=== PATIENT | female | born 1950 | race Caucasian/White ===

== ENCOUNTER → 2016-06-06 | Outpatient (CLI) | payer MEDICARE, OTHER ==
[2016-06-06 14:39] LABS: CHLORIDE,CL 102 mmol/L (98-110); SODIUM,NA 140 mmol/L (136-146)
== END ==
LOC: MW.CHFP 13:51
PROVIDERS: ATTEND Physician Assistant
DX: R10.13 Epigastric pain (principal)
CPT/HCPCS: 36415; 80053; 85025; 99214

== ENCOUNTER → 2016-06-10 | Outpatient (CLI) | payer MEDICARE, OTHER ==
--- NOTE | 2016-06-10 13:20 | US ---
EXAMINATION: Right upper quadrant ultrasound HISTORY: Epigastric pain COMPARISON: 03/30/2015 TECHNIQUE: Grayscale and color Doppler images obtained of the right upper quadrant. FINDINGS: The visualized pancreas appears normal. The liver is mildly increased in generalized echot exture without a focal hepatic mass. The gallbladder wall thickness is normal. No pericholecystic fl uid or shadowing gallstones. The common bile duct measures 3 mm. The right kidney measures 11.1 cm p ole-to-pole without evidence of hydronephrosis. The Sonographic Marte sign is negative. IMPRESSION: 1. Mild fatty infiltration of the liver, otherwise unremarkable right upper quadrant ultrasound.
== END ==
LOC: MW.US 08:46
PROVIDERS: ATTEND Physician Assistant
DX: R10.13 Epigastric pain (principal); K76.0 Fatty (change of) liver, not elsewhere classified
CPT/HCPCS: 76705; 76705-26

== ENCOUNTER → 2016-06-16 | Outpatient (CLI) | payer MEDICARE, OTHER ==
--- NOTE | 2016-06-17 18:43 | PCM.PRNOTE ---
- Free Text/Narrative Note: Exercise MIBI Indication CP Sestamibi Tc99 25 MCi was given at the peak HR Patient was brought to the stress test lab in postabsorptive state verbal and paper consent was obtained from patient Vital signs at resting state blood pressure of 124/82 with a heart rate of 89 EKG shows sinus rhythm, with PVCs no ST changes no Q waves Maximal heart rate of 158 and target heart rate is 132 Patient reached the target heart rate, completed stage II Sonny protocol Peak blood pressure is 142/84 Total exercise time of 3.[address] changes with a peak heart rate no arrhythmia METS 4.6 No symptom of chest pain or feeling dizzy Impression Normal hemodynamics, normal chronotropic, poor exercise capacity, negative for ischemia on EKG Plan Nuclear portion pending
--- NOTE | 2016-06-21 11:03 | NM ---
EXAMINATION: Nuclear medicine myocardial perfusion study with exercise stress test. HISTORY: Chest pain. PROCEDURE: Patient exercised according to Sonny protocol for 3 minutes and 23 seconds and achieved maximal hear t rate of 158 beats per minute. Adequate exercise. Following intravenous administration of 26.7, and 25.7 mCi of technetium 99m sestamibi, stress and r est SPECT images including gating imaging was performed. FINDINGS: Stress and rest myocardial SPECT images demonstrates mildly decreased perfusion along the inferior w all, most notable on the stress images. Mild breast attenuation artifact is noted along the mid to a pical anterior wall. Review of gated images demonstrates normal wall motion, contractility and wall thickening. The left ventricular ejection fraction is 56 %. The left ventricular chamber size is normal. TID is 1.0. IMPRESSION: 1. Mildly decreased perfusion along the inferior wall most notable on the stress imaging, mild under lying ischemia is not excluded. 2. Normal ventricular chamber size and function with ejection fraction of 56 %.
== END ==
LOC: MW.NM 08:21
PROVIDERS: ATTEND Internal Medicine
DX: R07.9 Chest pain, unspecified (principal)
CPT/HCPCS: 78451; 93017; A9500

== ENCOUNTER → 2016-06-21 | Outpatient (CLI) | payer MEDICARE, OTHER | LOC: MW.NM 08:04 | PROVIDERS: ATTEND Internal Medicine | DX: R07.9 Chest pain, unspecified (principal) | CPT/HCPCS: 78451; A9500; 93017 ==

== ENCOUNTER → 2016-06-24 | Outpatient (CLI) | payer MEDICARE, OTHER | LOC: MW.CHGS 08:00 | PROVIDERS: ATTEND Surgery | DX: R10.13 Epigastric pain (principal) | CPT/HCPCS: 99203 ==

== ENCOUNTER → 2016-06-29 | Outpatient (CLI) | payer MEDICARE, OTHER | LOC: MW.CHIM 08:00 | PROVIDERS: ATTEND Internal Medicine | DX: R07.9 Chest pain, unspecified (principal); I10 Essential (primary) hypertension; E11.9 Type 2 diabetes mellitus without complications | CPT/HCPCS: 99215 ==

== ENCOUNTER → 2016-07-29 | Outpatient (CLI) | payer MEDICARE, OTHER | LOC: MW.CHIM 11:00 | PROVIDERS: ATTEND Otolaryngology | DX: R07.9 Chest pain, unspecified (principal) | CPT/HCPCS: G0463 ==

== ENCOUNTER → 2016-08-15 | Outpatient (CLI) | payer MEDICARE, OTHER | LOC: MW.CHIM 08:00 | PROVIDERS: ATTEND Internal Medicine | DX: I25.10 Atherosclerotic heart disease of native coronary artery without angina pectoris (principal); E78.00 Pure hypercholesterolemia, unspecified; E11.9 Type 2 diabetes mellitus without complications; I10 Essential (primary) hypertension | CPT/HCPCS: 99214 ==

== ENCOUNTER 2017-05-09 08:38 | Emergency (ER) | payer MEDICARE, OTHER ==
[2017-05-09] MEDS ORDERED: Sodium Chloride 0.9% 1,000 ML IV ONE (08:58)
[2017-05-09] MEDS ORDERED: Ondansetron 4 MG/2 ML SDV IVPUSH ONE (08:58)
--- NOTE | 2017-05-09 08:59 | EDM.PDOC ---
ED HPI GENERAL MEDICAL PROBLEM - General Chief Complaint: Gastrointestinal Problem Stated Complaint: BP LOW Time Seen by Provider: 05/09/17 08:59 Source of Information: Reports: Patient - History of Present Illness INITIAL COMMENTS - FREE TEXT/NARRATIVE: HISTORY AND PHYSICAL: History of present illness: [Patient presents with history of anemia on iron supplementation hemoglobin levels are on file Her she has no fever nausea vomiting chills sweats no chest pain shortness breath headache dizziness or palpitation no bowel or urine symptoms It seems Mónica her iron dose was tripled since she has been having some stomach upset and constipation issues, she is guaiac positive however hemoglobin level is actually higher than previous last month and hemodynamically stable She has been on the constipated side since the increase in iron supplementation ] Review of systems: As per history of present illness and below otherwise all systems reviewed and negative. Past medical history: As per history of present illness and as reviewed below otherwise noncontributory. Surgical history: As per history of present illness and as reviewed below otherwise noncontributory. Social history: No reported history of drug or alcohol abuse. Family history: As per history of present illness and as reviewed below otherwise noncontributory. Physical exam: HEENT: Atraumatic, normocephalic, pupils reactive, negative for conjunctival pallor or scleral icterus, mucous membranes moist, throat clear, neck supple, nontender, trachea midline. Lungs: Clear to auscultation, breath sounds equal bilaterally, chest nontender. Heart: S1S2, regular, negative for clicks, rubs, or JVD. Abdomen: Soft, nondistended, nontender. Negative for masses or hepatosplenomegaly. Negative for costovertebral tenderness. Pelvis: Stable nontender. Genitourinary: Deferred. Rectal: No mass scar or lesion internal or external guaiac was 3+ positive Extremities: Atraumatic, negative for cords or calf pain. Neurovascular unremarkable. Neuro: Awake, alert, oriented. Cranial nerves II through XII unremarkable. Cerebellum unremarkable. Motor and sensory unremarkable throughout. Exam nonfocal. Diagnostics: [CBC CMP UA Abdomen flat and upright Guaiac +3+ ] Therapeutics: [Normal saline bolus Zofran 8 mg IV Proton X 80 mg IV Follow-up with repeat CBC i within 2 weeks with your primary care] patient offered admission due to her diversion status she would have to be admitted at [facility] she declines wishing to follow up with her primary care Impression: [Guaiac positive Anemia stable Iron supplementation Chronic history at baseline] Definitive disposition and diagnosis as appropriate pending reevaluation and review of above. Abdominal Pain Score (Numeric/FACES): 5 - Related Data Allergies Allergy/AdvReac Type Severity Reaction Status Date / Time caffeine Allergy Diarrhea Verified 05/09/17 09:01 codeine Allergy Nausea Verified 05/09/17 09:01 IVP dye Allergy Anaphylactic Uncoded 05/09/17 09:01 Shock Home Meds: Home Meds Albuterol Sulfate [Proair Hfa] 2 puff INH QID PRN 08/17/15 [History] Ascorbic Acid [C-1000 with Richa Hips] 500 mg PO DAILY 08/17/15 [History] Calcium Carbonate/Vitamin D3 [Calcium 600 + Vit D 200] 1 tab PO DAILY 08/17/15 [ History] Chlorthalidone 12.5 mg PO DAILY 08/17/15 [History] Cholecalciferol (Vitamin D3) [Vitamin D3] 1 tab PO DAILY 08/17/15 [History] Citalopram Hydrobromide [Celexa] 20 mg PO DAILY 08/17/15 [History] Diclofenac Sodium [Voltaren] 75 mg PO BID 08/17/15 [History] Estradiol [Vagifem] 1 tab VAG ASDIRECTED 08/17/15 [History] Fluticasone Propionate [Flonase Allergy Relief] 1 spray NASBOTH ASDIRECTED 08/16 [History] Gabapentin [Neurontin] 1 tab PO TID 08/17/15 [History] Hydrocortisone [Hydrocortisone 2.5% Crm] 1 applic TOP ASDIRECTED 08/17/15 [ History] Iron 1 tab PO DAILY 08/17/15 [History] Losartan Potassium 100 mg PO BEDTIME 08/17/15 [History] Magnesium 1 tab PO DAILY 08/17/15 [History] Om-3/Epa/Dha/Fish Oil/Flax/E [Thera Tears Nutrition] 1 tab PO DAILY 08/17/15 [ History] Omeprazole 1 cap PO DAILY 08/17/15 [History] Past Medical History HEENT History: Reports: Allergic Rhinitis, Hard of Hearing, Impaired Vision Other HEENT History: wears glasses Cardiovascular History: Reports: None Respiratory History: Reports: Asthma Gastrointestinal History: Reports: GERD, Hiatal Hernia Genitourinary History: Reports: None SCANNING TECH History: Reports: None Musculoskeletal History: Reports: Arthritis, Back Pain, Chronic, Fibromyalgia, Other (See Below) Other Musculoskeletal History: has spinal stenosis Neurological History: Reports: None Psychiatric History: Reports: Anxiety, Depression Endocrine/Metabolic History: Reports: Diabetes, Type II, Obesity/BMI 30+ Other Endocrine/Metabolic History: recently diagnosed diabetic, has not started on medication Hematologic History: Reports: Blood Transfusion(s) Immunologic History: Reports: None Oncologic (Cancer) History: Reports: None Dermatologic History: Reports: Other (See Below) Other Dermatologic History: has dermatitis on face - Past Surgical History Musculoskeletal Surgical History: Reports: Hip Replacement, Knee Replacement, Other (See Below) Social & Family History - Tobacco Use Smoking Status *Q: Never Smoker - Recreational Drug Use Recreational Drug Use: No ED ROS GENERAL - Review of Systems Review Of Systems: ROS reveals no pertinent complaints other than HPI. ED EXAM, GENERAL - Physical Exam Exam: See Below Course - Vital Signs Last Recorded V/S: Last Vital Signs Temp 97.1 F 05/09/17 11:55 Pulse 61 05/09/17 11:55 Resp 15 05/09/17 11:55 BP 128/59 L 05/09/17 11:55 Pulse Ox 98 05/09/17 11:55 - Orders/Labs/Meds Orders: Active Orders 24 hr Category Date Time Status Guaiac [OCCULT BLOOD DIAGNOSTIC] [OP] Stat Lab 05/09/17 13:08 Uncollected INR,PT,PROTHROMBIN TIME [COAG] Stat Lab 05/09/17 09:10 Received Labs: Laboratory Tests 05/09/17 05/09/17 05/09/17 Range/Units 09:10 09:10 09:55 WBC 8.18 (4.0-11.0) K/uL RBC 4.10 L (4.30-5.90) M/uL Hgb 9.2 L (12.0-16.0) g/dL Hct 31.4 L (36.0-46.0) % MCV 76.6 L (80.0-98.0) fL MCH 22.4 L (27.0-32.0) pg MCHC 29.3 L (31.0-37.0) g/dL RDW Std Deviation 49.3 (28.0-62.0) fl RDW Coeff of Chavez 18 H (11.0-15.0) % Plt Count 320 (150-400) K/uL MPV 9.10 (7.40-12.00) fL Neut % (Auto) 77.0 (48.0-80.0) % Lymph % (Auto) 12.1 L (16.0-40.0) % [place] % (Auto) 6.8 (0.0-15.0) % Eos % (Auto) 3.7 (0.0-7.0) % Baso % (Auto) 0.4 (0.0-1.5) % Neut # (Auto) 6.3 H (1.4-5.7) K/uL Lymph # (Auto) 1.0 (0.6-2.4) K/uL [place] # (Auto) 0.6 (0.0-0.8) K/uL Eos # (Auto) 0.3 (0.0-0.7) K/uL Baso # (Auto) 0.0 (0.0-0.1) K/uL Nucleated RBC % 0.0 /100WBC Nucleated RBCs # 0 K/uL Sodium 137 (136-146) mmol/L Potassium 4.0 (3.5-5.1) mmol/L Chloride 102 (98-110) mmol/L Carbon Dioxide 26 (21-31) mmol/L BUN 29 H (6.0-23.0) mg/dL Creatinine 0.9 (0.6-1.5) mg/dL Est Cr Clr Drug Dosing 60.60 mL/min Estimated GFR (MDRD) > 60.0 ml/min Glucose 183 H (60-110) mg/dL Calcium 9.1 (8.8-10.8) mg/dL Total Bilirubin 0.5 (0.1-1.5) mg/dL AST 22 (5-40) IU/L ALT 18 (8-54) IU/L Alkaline Phosphatase 78 (40-150) Total Protein 6.7 (6.0-8.0) g/dL Albumin 4.2 (3.4-4.8) g/dL Globulin 2.5 (2.0-3.5) g/dL Albumin/Globulin Ratio 1.7 (1.3-2.8) Urine Color YELLOW Urine Appearance CLEAR Urine pH 6.5 (5.0-8.0) Ur Specific [place] 1.015 (1.001-1.035) Urine Protein NEGATIVE (NEGATIVE) mg/dL Urine Glucose (UA) NEGATIVE (NEGATIVE) mg/dL Urine Ketones NEGATIVE (NEGATIVE) mg/dL Urine Occult Blood TRACE-INTACT (NEGATIVE) Urine Nitrite NEGATIVE (NEGATIVE) Urine Bilirubin NEGATIVE (NEGATIVE) Urine Urobilinogen 0.2 (<2.0) EU/dL Ur Leukocyte Esterase TRACE (NEGATIVE) Urine RBC 0-2 (0-2/HPF) Urine WBC 0-1 (0-5/HPF) Ur Epithelial Cells OCCASIONAL (NONE-FEW) Urine Bacteria RARE (NEGATIVE) Meds: Medications Discontinued Medications Generic Name Dose Route Start Last Admin Trade Name Isabelle PRN Reason Stop Dose Admin Sodium Chloride 1,000 mls @ 999 mls/hr 05/09/17 08:58 05/09/17 09:16 Normal Saline IV 05/09/17 09:58 999 mls/hr STAT ONE Administration Ondansetron HCl 8 mg 05/09/17 08:58 05/09/17 09:17 Zofran IVPUSH 05/09/17 08:59 8 mg ONETIME ONE Administration Pantoprazole Sodium 80 mg 05/09/17 11:54 Protonix Iv IVPUSH 05/09/17 11:55 .BOLUS ONE Departure - Departure Time of Disposition: 13:20 Disposition: Home, Self-Care 01 Condition: Fair Clinical Impression: Anemia, Constipation - Discharge Information Referrals: PCP,Unknown [Primary Care Provider] - Forms: ED Department Discharge Additional Instructions: Return if symptoms persist or worsen Continue current medications Clear liquid diet 12 hours MiraLAX may benefit bowel care as discussed Return if fever nausea vomiting chills sweats chest pain shortness breath headache dizziness or palpitation should these develop Follow-up with primary care within 2 weeks to recheck her hemoglobin levels The following information is given to patients seen in the emergency department who are being discharged to home. This information is to outline your options for follow-up care. We provide all patients seen in our emergency department with a follow-up referral. The need for follow-up, as well as the timing and circumstances, are variable depending upon the specifics of your emergency department visit. If you don't have a primary care physician on staff, we will provide you with a referral. We always advise you to contact your personal physician following an emergency department visit to inform them of the circumstance of the visit and for follow-up with them and/or the need for any referrals to a consulting specialist. The emergency department will also refer you to a specialist when appropriate. This referral assures that you have the opportunity for follow-up care with a specialist. All of these measure are taken in an effort to provide you with optimal care, which includes your follow-up. Under all circumstances we always encourage you to contact your private physician who remains a resource for coordinating your care. When calling for follow-up care, please make the office aware that this follow-up is from your recent emergency room visit. If for any reason you are refused follow-up, please contact the [facility] emergency department at and asked to speak to the emergency department charge nurse. - My Orders Last 24 Hours: My Active Orders 05/09/17 09:10 INR,PT,PROTHROMBIN TIME [COAG] Stat 05/09/17 13:08 Guaiac [OCCULT BLOOD DIAGNOSTIC] [OP] Stat - Assessment/Plan Last 24 Hours: My Active Orders 05/09/17 09:10 INR,PT,PROTHROMBIN TIME [COAG] Stat 05/09/17 13:08 Guaiac [OCCULT BLOOD DIAGNOSTIC] [OP] Stat
[2017-05-09 09:38] LABS: CHLORIDE,CL 102 mmol/L (98-110); SODIUM,NA 137 mmol/L (136-146)
[2017-05-09] MEDS ORDERED: Pantoprazole 40 MG Vial IVPUSH ONE (11:54)
--- NOTE | 2017-05-09 12:51 | CR ---
Flat plate and upright images of the abdomen Clinical history abdominal pain Comparison: no recent similar. Findings: There is no dilated bowel. A moderate amount of stool throughout the colon to the rectum wi th no air-fluid levels. 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 Impression: No definite specific abnormalities. Question of constipation.
[2017-05-09] MEDS ORDERED: Pantoprazole 40 MG Tab.CR ONE (14:07)
[2017-05-09 14:19] VITALS: BP 141/53
[2017-05-10] MEDS ORDERED: Pantoprazole 40 MG Tab.CR PO SCH (14:01)
== END 2017-05-09 14:25 | disposition home or self-care (01) ==
LOC: MW.ED 08:38
DX: D64.9 Anemia, unspecified (principal); K59.00 Constipation, unspecified; R19.5 Other fecal abnormalities; E11.9 Type 2 diabetes mellitus without complications; J45.909 Unspecified asthma, uncomplicated; Z79.899 Other long term (current) drug therapy
CPT/HCPCS: 36415; 74019; 80053; 81001; 82272; 85025; 85610; 87804; 96361; 96374; 99284; A9270; J2405; J7040

== ENCOUNTER 2017-05-22 10:32 | Emergency (ER) | payer MEDICARE, OTHER ==
[2017-05-22 12:14] LABS: CHLORIDE,CL 103 mmol/L (98-110); SODIUM,NA 137 mmol/L (136-146)
--- NOTE | 2017-05-22 13:20 | EDM.PDOC ---
ED HPI GENERAL MEDICAL PROBLEM - General Chief Complaint: General Stated Complaint: ANEMIA Time Seen by Provider: 05/22/17 11:00 Source of Information: Reports: Patient History Limitations: Reports: No Limitations - History of Present Illness INITIAL COMMENTS - FREE TEXT/NARRATIVE: HISTORY AND PHYSICAL: History of present illness: [Comes to the emergency room complaining of fatigue headache and generalized malaise. She has been following regularly with her primary care provider for low iron and anemia. She had been prescribed oral iron supplements which she was unable to tolerate due to nausea. These medications have been stopped for the past week and her PCP is contemplating if iron infusions should be ordered. 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 She is unable to be scoped due to cardiac stent that was placed within the past couple of months and she is now taking Plavix. She has felt poorly for the past few weeks but over the past couple of days she feels that she's gotten worse with headache and fatigue. She would like an iron infusion to be given in ER. She's not had fever or chills. No body aches, cough , sore throat or earaches. No chest pain shortness of breath or difficulty breathing. She's not had any fainting but admits that she occasionally feels lightheaded. No falls. No swelling to her extremities no muscle aches or pains.] Review of systems: As per history of present illness and below otherwise all systems reviewed and negative. Past medical history: As per history of present illness and as reviewed below otherwise noncontributory. Surgical history: As per history of present illness and as reviewed below otherwise noncontributory. Social history: No reported history of drug or alcohol abuse. Family history: As per history of present illness and as reviewed below otherwise noncontributory. Physical exam: HEENT: Atraumatic, normocephalic. Oral mucous membranes are pink and moist. Throat is clear. Lungs: Clear to auscultation, breath sounds equal bilaterally. Heart: S1S2, regular rate and rhythm. Abdomen: Soft, nondistended, nontender. Pelvis: Stable nontender. Genitourinary: Deferred. Rectal: Deferred. Extremities: Atraumatic, no cyanosis or edema to feet or lower legs. Neurovascular unremarkable. Neuro: Awake, alert, oriented. Motor and sensory unremarkable throughout. Exam nonfocal. Diagnostics: [CBC, CMP, iron, transferrin, TIBC] Impression: [anemia] Plan: [Discussed with patient that her hemoglobin is only very slightly decreased from 9.2 10 days ago to 9.0 today, and that her iron has improved in the last 10 days. Discussed that iron is not infused through the emergency room and only through the outpatient infusion center. Contacted patient's PCP, SERENE Wolf, who orders outpatient infusion of iron. Outpatient infusion center is unable to perform the treatment today as patient's insurance is requiring a prior authorization. Saran recommends that she is discharged home with the infusion center to call patient later on today or tomorrow to get scheduled. Encouraged patient to stay well-hydrated and rest. Strict return precautions are reviewed with the patient. She is in agreement with today's plan. Definitive disposition and diagnosis as appropriate pending reevaluation and review of above. - Related Data Allergies Allergy/AdvReac Type Severity Reaction Status Date / Time caffeine Allergy Diarrhea Verified 05/22/17 10:59 codeine Allergy Nausea Verified 05/22/17 10:59 IVP dye Allergy Anaphylactic Uncoded 05/09/17 09:01 Shock Home Meds: Home Meds Citalopram [Citalopram HBr] 20 mg PO DAILY 05/22/17 [History] Clopidogrel [Plavix] 75 mg PO DAILY 05/22/17 [History] Gabapentin [Neurontin] 800 mg PO TID 05/22/17 [History] Metoprolol Succinate 12.5 mg PO BID 05/22/17 [History] Pantoprazole [ProTONIX Granules] 40 mg PO DAILY 05/22/17 [History] traMADol [Ultram] 50 mg PO DAILY 05/22/17 [History] Past Medical History HEENT History: Reports: Allergic Rhinitis, Hard of Hearing, Impaired Vision Other HEENT History: wears glasses Cardiovascular History: Reports: None Respiratory History: Reports: Asthma Gastrointestinal History: Reports: GERD, Hiatal Hernia Genitourinary History: Reports: None FLOOR CARE SPECIALIST History: Reports: None Musculoskeletal History: Reports: Arthritis, Back Pain, Chronic, Fibromyalgia, Other (See Below) Other Musculoskeletal History: has spinal stenosis Neurological History: Reports: None Psychiatric History: Reports: Anxiety, Depression Endocrine/Metabolic History: Reports: Diabetes, Type II, Obesity/BMI 30+ Other Endocrine/Metabolic History: recently diagnosed diabetic, has not started on medication Hematologic History: Reports: Anemia, Blood Transfusion(s) Immunologic History: Reports: None Oncologic (Cancer) History: Reports: None Dermatologic History: Reports: Other (See Below) Other Dermatologic History: has dermatitis on face - Infectious Disease History Infectious Disease History: Reports: Chicken Pox, Measles, Mumps - Past Surgical History Head Surgeries/Procedures: Reports: None HEENT Surgical History: Reports: None Cardiovascular Surgical History: Reports: None Respiratory Surgical History: Reports: None GI Surgical History: Reports: None Female Surgical History: Reports: None Musculoskeletal Surgical History: Reports: Hip Replacement, Knee Replacement, Other (See Below) Oncologic Surgical History: Reports: None Dermatological Surgical History: Reports: None Social & Family History - Family History Family Medical History: Noncontributory - Tobacco Use Smoking Status *Q: Never Smoker Second Hand Smoke Exposure: No - Caffeine Use Caffeine Use: Reports: None - Recreational Drug Use Recreational Drug Use: No ED ROS GENERAL - Review of Systems Review Of Systems: ROS reveals no pertinent complaints other than HPI. ED EXAM, GENERAL - Physical Exam Exam: See Below Course - Vital Signs Last Recorded V/S: Last Vital Signs Temp 98.3 F 05/22/17 13:38 Pulse 70 05/22/17 13:38 Resp 20 05/22/17 13:38 BP 136/64 05/22/17 13:38 Pulse Ox 99 05/22/17 13:38 - Orders/Labs/Meds Labs: Laboratory Tests 05/22/17 05/22/17 05/22/17 Range/Units 11:37 11:37 11:37 WBC 7.60 (4.0-11.0) K/uL RBC 4.03 L (4.30-5.90) M/uL Hgb 9.0 L (12.0-16.0) g/dL Hct 30.5 L (36.0-46.0) % MCV 75.7 L (80.0-98.0) fL MCH 22.3 L (27.0-32.0) pg MCHC 29.5 L (31.0-37.0) g/dL RDW Std Deviation 45.7 (28.0-62.0) fl RDW Coeff of Chavez 16 H (11.0-15.0) % Plt Count 285 (150-400) K/uL MPV 8.70 (7.40-12.00) fL Neut % (Auto) 74.8 (48.0-80.0) % Lymph % (Auto) 14.6 L (16.0-40.0) % [place] % (Auto) 8.7 (0.0-15.0) % Eos % (Auto) 1.6 (0.0-7.0) % Baso % (Auto) 0.3 (0.0-1.5) % Neut # (Auto) 5.7 (1.4-5.7) K/uL Lymph # (Auto) 1.1 (0.6-2.4) K/uL [place] # (Auto) 0.7 (0.0-0.8) K/uL Eos # (Auto) 0.1 (0.0-0.7) K/uL Baso # (Auto) 0.0 (0.0-0.1) K/uL Nucleated RBC % 0.0 /100WBC Nucleated RBCs # 0 K/uL Sodium 137 (136-146) mmol/L Potassium 3.9 (3.5-5.1) mmol/L Chloride 103 (98-110) mmol/L Carbon Dioxide 25 (21-31) mmol/L BUN 12 (6.0-23.0) mg/dL Creatinine 0.8 (0.6-1.5) mg/dL Est Cr Clr Drug Dosing 68.18 mL/min Estimated GFR (MDRD) > 60.0 ml/min Glucose 118 H (60-110) mg/dL Calcium 9.4 (8.8-10.8) mg/dL Iron 36 L (50-170) ug/dL TIBC 402 (273-456) ug/dL % Saturation 8.96 L (20-55) % Transferrin 281 (200-400) ug/dL Total Bilirubin 0.4 (0.1-1.5) mg/dL AST 18 (5-40) IU/L ALT 16 (8-54) IU/L Alkaline Phosphatase 87 (40-150) Total Protein 6.7 (6.0-8.0) g/dL Albumin 4.2 (3.4-4.8) g/dL Globulin 2.5 (2.0-3.5) g/dL Albumin/Globulin Ratio 1.7 (1.3-2.8) Departure - Departure Time of Disposition: 13:20 Disposition: Home, Self-Care 01 Condition: Good Clinical Impression: Anemia - Discharge Information Instructions: Iron Deficiency Anemia, Adult Referrals: PCP,Unknown [Primary Care Provider] - Forms: ED Department Discharge Additional Instructions: The following information is given to patients seen in the emergency department who are being discharged to home. This information is to outline your options for follow-up care. We provide all patients seen in our emergency department with a follow-up referral. The need for follow-up, as well as the timing and circumstances, are variable depending upon the specifics of your emergency department visit. If you don't have a primary care physician on staff, we will provide you with a referral. We always advise you to contact your personal physician following an emergency department visit to inform them of the circumstance of the visit and for follow-up with them and/or the need for any referrals to a consulting specialist. The emergency department will also refer you to a specialist when appropriate. This referral assures that you have the opportunity for follow-up care with a specialist. All of these measure are taken in an effort to provide you with optimal care, which includes your follow-up. Under all circumstances we always encourage you to contact your private physician who remains a resource for coordinating your care. When calling for follow-up care, please make the office aware that this follow-up is from your recent emergency room visit. If for any reason you are refused follow-up, please contact the [facility] emergency department at and asked to speak to the emergency department charge nurse. [facility] [address] [place] [id number] Outpatient infusion center will be notifying you as soon as your insurance approves for iron infusion. Rest, push fluids. Return to ER as needed as discussed.
[2017-05-22 13:38] VITALS: BP 136/64
== END 2017-05-22 13:38 | disposition home or self-care (01) ==
LOC: MW.ED 10:32
DX: D64.9 Anemia, unspecified (principal); K21.9 Gastro-esophageal reflux disease without esophagitis; F32.9 Major depressive disorder, single episode, unspecified; E11.9 Type 2 diabetes mellitus without complications; Z79.02 Long term (current) use of antithrombotics/antiplatelets; Z79.899 Other long term (current) drug therapy; Z88.5 Allergy status to narcotic agent; Z91.041 Radiographic dye allergy status; Z88.8 Allergy status to other drugs, medicaments and biological substances
CPT/HCPCS: 36415; 80053; 83550; 85025; 99283; 99284

== ENCOUNTER 2017-07-10 13:31 | Emergency (ER) | payer MEDICARE, OTHER ==
[2017-07-10] MEDS ORDERED: Ondansetron 4 MG/2 ML SDV IVPUSH ONE (14:48)
[2017-07-10] MEDS ORDERED: Sodium Chloride 0.9% 2.5 ML Syringe FLUSH PRN (14:51)
[2017-07-10] MEDS ORDERED: Sodium Chloride 0.9% 10 ML Syringe FLUSH PRN (14:51)
[2017-07-10] MEDS: HYDROmorphone 2 MG/ML SDV IVPUSH SCH ×2 (15:17→15:44)
[2017-07-10] MEDS ORDERED: Cyclobenzaprine 10 MG Tab PO ONE (15:39)
--- NOTE | 2017-07-10 15:56 | CR ---
EXAMINATION: Lumbar spine HISTORY: Pain COMPARISON: None TECHNIQUE: AP and lateral views FINDINGS: There is grade 1 anterolisthesis of L4 on L5 with underlying facet hypertrophy. There is no definite fracture or acute osseous abnormality. Mild sclerosis noted at the SI joints, with anterior osteophytes. Mild marginal osteophytes noted within the lumbar spine. Coarsened trabecular noted wit hin the L2 vertebral body, suggesting an underlying meningioma. Bone mineralization is otherwise norm al. IMPRESSION: 1. Degenerative changes without definite acute osseous abnormality.
--- NOTE | 2017-07-10 15:58 | EDM.PDOC ---
ED HPI GENERAL MEDICAL PROBLEM - General Chief Complaint: Back Pain or Injury Stated Complaint: BACK PAIN Time Seen by Provider: 07/10/17 14:44 Source of Information: Reports: Patient History Limitations: Reports: No Limitations - History of Present Illness INITIAL COMMENTS - FREE TEXT/NARRATIVE: History of present illness: []Patient had right hip replacement many years ago and recently started having right hip pain. X-ray done and there was an abnormality noted however she wanted to wait to have it fixed because she is scheduled this week for upper and lower GI. She has a stent placed a year ago and has been on Plavix and is scheduled to come off the Plavix right before her upper and lower GI. Patient started using a cane due to the hip pain and suddenly developed low back pain sleeping on the right. She denies any falls numbness or tingling or pain radiating down to her right leg. Review of systems: As per history of present illness and below otherwise all systems reviewed and negative. Past medical history: As per history of present illness and as reviewed below otherwise noncontributory. Surgical history: As per history of present illness and as reviewed below otherwise noncontributory. Social history: No reported history of drug or alcohol abuse. Family history: As per history of present illness and as reviewed below otherwise noncontributory. Physical exam: General: Well developed, well nourished in NAD HEENT: Atraumatic, normocephalic, pupils reactive, negative for conjunctival pallor or scleral icterus, mucous membranes moist, throat clear, neck supple, nontender, trachea midline. Lungs: Clear to auscultation, breath sounds equal bilaterally, chest nontender. Heart: S1S2, regular, negative for clicks, rubs, or JVD. Abdomen: Soft, nondistended, nontender. Negative for masses or hepatosplenomegaly. Negative for costovertebral tenderness. Pelvis: Stable nontender. Genitourinary: Deferred. Rectal: Deferred. Extremities: Atraumatic, negative for cords or calf pain. Neurovascular unremarkable. Neuro: Awake, alert, oriented. Cranial nerves II through XII unremarkable. Cerebellum unremarkable. Motor and sensory unremarkable throughout. Exam nonfocal. Diagnostics: []Lumbar x-ray shows Therapeutics: []Dilaudid and Flexeril given for comfort. Impression: []Low back pain Plan: []10 year tramadol, use Flexeril for muscle spasm and use ice and heat for comfort. Definitive disposition and diagnosis as appropriate pending reevaluation and review of above. Lower Back Pain Score (Numeric/FACES): 10 - Related Data Allergies Allergy/AdvReac Type Severity Reaction Status Date / Time caffeine Allergy Diarrhea Verified 05/22/17 10:59 codeine Allergy Nausea Verified 05/22/17 10:59 IVP dye Allergy Anaphylactic Uncoded 05/09/17 09:01 Shock Home Meds: Home Meds Citalopram [Citalopram HBr] 20 mg PO DAILY 05/22/17 [History] Clopidogrel [Plavix] 75 mg PO DAILY 05/22/17 [History] Gabapentin [Neurontin] 800 mg PO TID 05/22/17 [History] Metoprolol Succinate 12.5 mg PO BID 05/22/17 [History] Pantoprazole [ProTONIX Granules] 40 mg PO DAILY 05/22/17 [History] traMADol [Ultram] 50 mg PO DAILY 05/22/17 [History] Cyclobenzaprine [Flexeril] 10 mg PO BID PRN #12 tab 07/10/17 [Rx] Past Medical History HEENT History: Reports: Allergic Rhinitis, Hard of Hearing, Impaired Vision Other HEENT History: wears glasses Cardiovascular History: Reports: None Respiratory History: Reports: Asthma Gastrointestinal History: Reports: GERD, Hiatal Hernia Genitourinary History: Reports: None 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 Musculoskeletal History: Reports: Arthritis, Back Pain, Chronic, Fibromyalgia, Other (See Below) Other Musculoskeletal History: has spinal stenosis Neurological History: Reports: None Psychiatric History: Reports: Depression Endocrine/Metabolic History: Reports: Diabetes, Type II, Obesity/BMI 30+ Other Endocrine/Metabolic History: recently diagnosed diabetic, has not started on medication Hematologic History: Reports: Anemia, Blood Transfusion(s) Immunologic History: Reports: None Oncologic (Cancer) History: Reports: None Dermatologic History: Reports: Other (See Below) Other Dermatologic History: has dermatitis on face - Infectious Disease History Infectious Disease History: Reports: Chicken Pox, Measles, Mumps - Past Surgical History Head Surgeries/Procedures: Reports: None HEENT Surgical History: Reports: None Cardiovascular Surgical History: Reports: None, Carotid Stents Other Cardiovascular Surgeries/Procedures: had stent put in one year ago Respiratory Surgical History: Reports: None GI Surgical History: Reports: None, Appendectomy Female Surgical History: Reports: Hysterectomy Musculoskeletal Surgical History: Reports: Hip Replacement, Knee Replacement, Other (See Below) Other Musculoskeletal Surgeries/Procedures:: L3-L4 laminectomy, left foot surgery for ruputured tendon Oncologic Surgical History: Reports: None Dermatological Surgical History: Reports: None Social & Family History - Family History Family Medical History: Noncontributory - Tobacco Use Smoking Status *Q: Never Smoker Second Hand Smoke Exposure: No - Caffeine Use Caffeine Use: Reports: None - Recreational Drug Use Recreational Drug Use: No ED ROS GENERAL - Review of Systems Review Of Systems: See Below (See history of present illness) ED EXAM,LOWER BACK PAIN/INJURY - Physical Exam Exam: See Below (See history of present illness) Course - Vital Signs Last Recorded V/S: Last Vital Signs Temp 97.8 F 07/10/17 14:05 Pulse 79 07/10/17 14:05 Resp 14 07/10/17 14:05 BP 119/57 L 07/10/17 14:05 Pulse Ox 93 L 07/10/17 14:05 - Orders/Labs/Meds Orders: Active Orders 24 hr Category Date Time Status HYDROmorphone [Dilaudid] Med 07/10/17 15:00 Active 0.5 mg IVPUSH Q1H Sodium Chloride 0.9% [Saline Flush] Med 07/10/17 14:51 Active 10 ml FLUSH ASDIRECTED PRN Sodium Chloride 0.9% [Saline Flush] Med 07/10/17 14:51 Active 2.5 ml FLUSH ASDIRECTED PRN Saline Lock Insert [OM.PC] Stat Oth 07/10/17 14:48 Ordered Medication Orders Hydromorphone HCl (Dilaudid) 0.5 mg IVPUSH Q1H PINEDA Stop: 07/10/17 17:01 Last Admin: 07/10/17 15:44 Dose: 0.5 mg Admin: 07/10/17 15:17 Dose: 0.5 mg Sodium Chloride (Saline Flush) 10 ml FLUSH ASDIRECTED PRN PRN Reason: Keep Vein Open Sodium Chloride (Saline Flush) 2.5 ml FLUSH ASDIRECTED PRN PRN Reason: Keep Vein Open Meds: Medications Generic Name Dose Route Start Last Admin Trade Name Freq PRN Reason Stop Dose Admin Hydromorphone HCl 0.5 mg 07/10/17 15:00 07/10/17 15:44 Dilaudid IVPUSH 07/10/17 17:01 0.5 mg Q1H PINEDA Administration Sodium Chloride 10 ml 07/10/17 14:51 Saline Flush FLUSH ASDIRECTED PRN Keep Vein Open Sodium Chloride 2.5 ml 07/10/17 14:51 Saline Flush FLUSH ASDIRECTED PRN Keep Vein Open Discontinued Medications Generic Name Dose Route Start Last Admin Trade Name Freq PRN Reason Stop Dose Admin Cyclobenzaprine HCl 10 mg 07/10/17 15:39 07/10/17 15:44 Flexeril PO 07/10/17 15:40 10 mg ONETIME ONE Administration Ondansetron HCl 4 mg 07/10/17 14:48 07/10/17 15:17 Zofran IVPUSH 07/10/17 14:49 4 mg ONETIME ONE Administration Departure - Departure Time of Disposition: 16:04 Disposition: Home, Self-Care 01 Condition: Good Clinical Impression: Spasm of muscle of lower back - Discharge Information Prescriptions: Cyclobenzaprine [Flexeril] 10 mg PO BID PRN #12 tab PRN Reason: Pain Referrals: PCP,None [Primary Care Provider] - Forms: ED Department Discharge Additional Instructions: The following information is given to patients seen in the emergency department who are being discharged to home. This information is to outline your options for follow-up care. We provide all patients seen in our emergency department with a follow-up referral. The need for follow-up, as well as the timing and circumstances, are variable depending upon the specifics of your emergency department visit. If you don't have a primary care physician on staff, we will provide you with a referral. We always advise you to contact your personal physician following an emergency department visit to inform them of the circumstance of the visit and for follow-up with them and/or the need for any referrals to a consulting specialist. The emergency department will also refer you to a specialist when appropriate. This referral assures that you have the opportunity for follow-up care with a specialist. All of these measure are taken in an effort to provide you with optimal care, which includes your follow-up. Under all circumstances we always encourage you to contact your private physician who remains a resource for coordinating your care. When calling for follow-up care, please make the office aware that this follow-up is from your recent emergency room visit. If for any reason you are refused follow-up, please contact the [facility] Department at and asked to speak to the emergency department charge nurse. External continue tramadol follow-up with primary care use ice and heat for comfort. [facility] [address] [place] [id number] - My Orders Last 24 Hours: My Active Orders 07/10/17 14:48 Saline Lock Insert [OM.PC] Stat 07/10/17 14:51 Sodium Chloride 0.9% [Saline Flush] 10 ml FLUSH ASDIRECTED PRN Sodium Chloride 0.9% [Saline Flush] 2.5 ml FLUSH ASDIRECTED PRN 07/10/17 15:00 HYDROmorphone [Dilaudid] 0.5 mg IVPUSH Q1H - Assessment/Plan Last 24 Hours: My Active Orders 07/10/17 14:48 Saline Lock Insert [OM.PC] Stat 07/10/17 14:51 Sodium Chloride 0.9% [Saline Flush] 10 ml FLUSH ASDIRECTED PRN Sodium Chloride 0.9% [Saline Flush] 2.5 ml FLUSH ASDIRECTED PRN 07/10/17 15:00 HYDROmorphone [Dilaudid] 0.5 mg IVPUSH Q1H
[2017-07-10 16:16] VITALS: BP 110/67
== END 2017-07-10 16:11 | disposition home or self-care (01) ==
LOC: MW.ED 13:31
DX: M62.830 Muscle spasm of back (principal); E11.9 Type 2 diabetes mellitus without complications; Z91.048 Other nonmedicinal substance allergy status; Z91.041 Radiographic dye allergy status; Z88.5 Allergy status to narcotic agent; Z79.899 Other long term (current) drug therapy; Z96.641 Presence of right artificial hip joint
CPT/HCPCS: 72100; 96374; 96375; 99283; A9270; J1170; J2405

== ENCOUNTER 2017-07-20 06:32 | Day surgery (SDC) | payer MEDICARE, OTHER ==
[~2017-07-20 06:32] MED LIST: Lactated Ringers 1,000 ML IV SCH; Sodium Chloride 0.9% 10 ML Syringe FLUSH PRN; Sodium Chloride 0.9% 2.5 ML Syringe FLUSH PRN
[2017-07-20] MEDS ORDERED: Midazolam 1 MG/ML 2 ML SDV ONE (07:02)
[2017-07-20] MEDS ORDERED: Propofol 200 MG/20 ML SDV ONE ×3 (07:02→08:17)
[2017-07-20] MEDS ORDERED: fentaNYL 100 MCG/2 ML SDV ONE (07:02)
--- NOTE | 2017-07-20 07:07 | PCM.PREANE ---
Preanesthetic Assessment - Anesthesia/Transfusion/Family Hx Anesthesia History: Prior Anesthesia Reaction Other Type of Anesthesia Reaction Comment: hx of N&V in the past- not recently Family History of Anesthesia Reaction: No Transfusion History: Prior Transfusion Without Reaction - Review of Systems General: No Symptoms Pulmonary: No Symptoms Cardiovascular: No Symptoms Gastrointestinal: Abdominal Pain, Constipation Neurological: No Symptoms Other: Reports: None - Physical Assessment O2 Sat by Pulse Oximetry: 96 Respiratory Rate: 16 Vital Signs: Last Vital Signs Temp 36.4 C 07/20/17 06:41 Pulse 62 07/20/17 06:41 Resp 16 07/20/17 06:41 BP 148/71 H 07/20/17 06:41 Pulse Ox 96 07/20/17 06:41 Height: 1.7 m Weight: 112.037 kg ASA Class: 3 Mental Status: Alert & Oriented x3 Airway Class: Mallampati = 2 Dentition: Reports: Normal Dentition, [place](s) (x4 upper and lower (back side)) Thyro-Mental Finger Breadths: 3 Mouth Opening Finger Breadths: 3 ROM/Head Extension: Full Lungs: Clear to Auscultation, Normal Respiratory Effort Cardiovascular: Regular Rate, Regular Rhythm - Allergies Allergies/Adverse Reactions: Allergies Allergy/AdvReac Type Severity Reaction Status Date / Time caffeine Allergy Diarrhea Verified 05/22/17 10:59 codeine Allergy Nausea Verified 05/22/17 10:59 IVP dye Allergy Anaphylactic Uncoded 05/09/17 09:01 Shock - Blood Blood Available: No - Anesthesia Plan Pre-Op Medication Ordered: None - Acknowledgements Anesthesia Type Planned: MAC Pt an Appropriate Candidate for the Planned Anesthesia: Yes Alternatives and Risks of Anesthesia Discussed w Pt/Guardian: Yes Pt/Guardian Understands and Agrees with Anesthesia Plan: Yes PreAnesthesia Questionnaire HEENT History: Reports: Allergic Rhinitis, Hard of Hearing, Impaired Vision Other HEENT History: wears glasses Cardiovascular History: Reports: CAD, High Cholesterol, Hypertension, Stents Respiratory History: Reports: Other (See Below) Other Respiratory History: was told she had asthma, another Doctor told her she didn't- does not use inhalers Gastrointestinal History: Reports: Colon Polyp, GERD Genitourinary History: Reports: None 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 Musculoskeletal History: Reports: Arthritis, Back Pain, Chronic, Fibromyalgia Other Musculoskeletal History: has spinal stenosis Neurological History: Reports: Other (See Below) (essential tremor) Psychiatric History: Reports: Anxiety, Depression Endocrine/Metabolic History: Reports: Diabetes, Type II, Obesity/BMI 30+ Other Endocrine/Metabolic History: recently diagnosed diabetic, has not started on medication Hematologic History: Reports: Anemia, Anticoagulation Therapy, Blood Transfusion (s) Immunologic History: Reports: None Oncologic (Cancer) History: Reports: None Dermatologic History: Reports: Other (See Below) Other Dermatologic History: has dermatitis on face - Infectious Disease History Infectious Disease History: Reports: Chicken Pox, Measles, Mumps - Past Surgical History Head Surgeries/Procedures: Reports: None HEENT Surgical History: Reports: Myringotomy w Tube(s) Cardiovascular Surgical History: Reports: Coronary Artery Stent, Varicose Other Cardiovascular Surgeries/Procedures: Angioplasty with one stent placed ' , hx of varicose vein stripping in legs Respiratory Surgical History: Reports: None GI Surgical History: Reports: None, Appendectomy Female Surgical History: Reports: Hysterectomy Endocrine Surgical History: Reports: None Neurological Surgical History: Reports: None Musculoskeletal Surgical History: Reports: Hip Replacement (right), Knee Replacement (left) Other Musculoskeletal Surgeries/Procedures:: L3-L4 laminectomy, left foot surgery for ruputured tendon Oncologic Surgical History: Reports: None Dermatological Surgical History: Reports: None - SUBSTANCE USE Smoking Status *Q: Never Smoker Second Hand Smoke Exposure: No Recreational Drug Use History: No - HOME MEDS Home Medications: Home Meds Citalopram [Citalopram HBr] 20 mg PO DAILY 05/22/17 [History] Clopidogrel [Plavix] 75 mg PO DAILY 05/22/17 [History] Gabapentin [Neurontin] 800 mg PO TID 05/22/17 [History] Metoprolol Succinate 12.5 mg PO BID 05/22/17 [History] Pantoprazole [ProTONIX Granules] 40 mg PO BID 05/22/17 [History] traMADol [Ultram] 50 mg PO TID PRN 05/22/17 [History] Ascorbic Acid [Vitamin C with Richa Hips] 500 mg PO DAILY 07/17/17 [History] Aspirin [Adult Low Dose Aspirin EC] 81 mg PO DAILY 07/17/17 [History] Biotin/Keratin [Biotin Plus Keratin Tablet] 1 tab PO DAILY 07/17/17 [History] Calcium Carbonate/Vitamin D3 [Calcium 500-Vit D3 200 Tablet] 1 tab PO DAILY 12/26 [History] Cholecalciferol (Vitamin D3) [Vitamin D3] 1,000 unit PO DAILY 07/17/17 [History] Magnesium 250 mg PO DAILY 07/17/17 [History] Pantoprazole Sodium 40 mg PO BID 07/17/17 [History] metFORMIN HCl [Metformin HCl ER] 500 mg PO BIDMEALS 07/17/17 [History] - CURRENT (IN HOUSE) MEDS Current Meds: Current Medications Lactated Ringer's (Ringers, Lactated) 1,000 mls @ 125 mls/hr IV ASDIRECTED PINEDA Last Admin: 07/20/17 06:42 Dose: 125 mls/hr Sodium Chloride (Saline Flush) 10 ml FLUSH ASDIRECTED PRN PRN Reason: Keep Vein Open Sodium Chloride (Saline Flush) 2.5 ml FLUSH ASDIRECTED PRN PRN Reason: Keep Vein Open
--- NOTE | 2017-07-20 08:40 | PCM.OPNOTE ---
- General Post-Op/Procedure Note Date of Surgery/Procedure: 07/20/17 Operative Procedure(s): Diagnostic EGD and colonoscopy Findings: Signs of refluxing stomach contents into esophagus consistent with GERD, normal colonoscopy Pre Op Diagnosis: GERD, iron deficiency anemia, history of colon polyps Post-Op Diagnosis: normal colonoscopy, GERD Anesthesia Technique: [facility] Primary Surgeon: Sally Jarquin Condition: Good
--- NOTE | 2017-07-20 09:04 | PCM48HPAN ---
Post Anesthesia Note - EVALUATION WITHIN 48HRS OF ANESTHETIC Vital Signs in Normal Range: Yes Patient Participated in Evaluation: Yes Respiratory Function Stable: Yes Airway Patent: Yes Cardiovascular Function Stable: Yes Hydration Status Stable: Yes Pain Control Satisfactory: Yes Nausea and Vomiting Control Satisfactory: Yes Mental Status Recovered: Yes Resp Rate: 15 - COMMENTS/OBSERVATIONS Free Text/Narrative:: no anesthesia problems
[2017-07-20 09:21] VITALS: BP 119/60
--- NOTE | 2017-07-20 16:30 | OR ---
SURGEON: SALLY JARQUIN MD DATE OF PROCEDURE: 07/20/2017 PREOPERATIVE DIAGNOSES: 1. Iron-deficiency anemia. 2. Hoarseness with history of gastroesophageal reflux disease. 3. History of colon polyps. POSTOPERATIVE DIAGNOSES: 1. Gastric esophageal reflux disease. 2. Normal colonoscopy. PROCEDURES PERFORMED: Diagnostic EGD and colonoscopy. ENDOSCOPIST: Sally Jarquin MD ANESTHESIA: MAC. INSTRUMENT USED: Olympus endoscope and colonoscope. EXTENT OF EXAM: To the second portion of duodenum, to the cecum. PREPARATION: Good. LIMITATIONS: None. INDICATION FOR EXAMINATION: The patient is a 67-year-old female, who presents for history of colon polyps as well as recent hoarseness of her voice. She also has a diagnosis of iron- deficiency anemia. She saw ear, nose, and throat doctor, who felt that her hoarseness may be due to gastric esophageal reflux disease. The patient never had an EGD. A decision was made to proceed with a diagnostic EGD and a followup colonoscopy. The patient and I discussed the procedures, expected perioperative course, and risks including bleeding, infection, or damage to surrounding structures including perforation. The patient verbalized understanding and wishes to proceed. PROCEDURE IN DETAIL: The patient was brought into the endoscopy suite and placed in a left lateral decubitus position. A time-out was completed verifying the patient's name, age, date of , allergies, and procedure to be performed. A bite block was placed in the patient's mouth and monitored anesthesia care was induced. Continuous oxygen was provided via nasal cannula throughout the procedure. After adequate sedation was achieved, a well lubricated endoscope was placed in the patient's mouth and advanced under direct visualization to the second portion of the duodenum. This appeared normal and a photograph was taken. The scope was then fully withdrawn while examining the color, texture, anatomy, and integrity of the upper GI tract. The small bowel all appeared normal. The scope was brought into the stomach and a photograph was taken of the pylorus as well as the GE junction. Both appeared normal. The gastric mucosa was free of inflammation or ulceration. Biopsies were taken of the gastric antrum, body, and fundus, and sent for H. pylori testing and histologic review. The scope was then brought into the distal esophagus. The distal esophageal mucosa appeared normal. There was no evidence of inflammation or ulceration. A photograph was taken of the Z-line. The remainder of the esophageal mucosa was free of any esophagitis; however, while fully retracting the scope back. There was active reflux of a small amount of fluid from the stomach up into the esophagus consistent with reflux disease. At the upper portion of the airway, the patient was noted to have some mucus covering her posterior pharynx and vocal cords. No evidence of inflammation, and a photograph was taken. The scope was removed and this portion of procedure was terminated. A digital rectal exam was performed. This exam was within normal limits. A well lubricated colonoscope was inserted in the patient's rectum and advanced under direct visualization to the level of cecum. Cecum was identified by both visual and anatomic landmarks. A photograph was taken of cecal cap as well as the scope retroflexed within the cecum. The scope was then fully withdrawn while examining the color, texture, anatomy, and integrity of the mucosa from the cecum to the anal canal. The findings were consistent with normal colonic mucosa. The scope was then retroflexed in the rectum, and a photograph was taken of the anal canal opening. This appeared normal. The scope was then straightened out and removed from the patient. Cecum to anus time was 9 minutes. The patient tolerated the procedure well and taken to PACU in stable condition. ENDOSCOPIC DIAGNOSES: 1. Gastric esophageal reflux disease. 2. Normal colonoscopy. RECOMMENDATIONS: Follow up with the clinic. I will follow up with the patient in clinic in 2 weeks. We will decrease her dose of pantoprazole to 40 mg daily. In clinic, we will discuss further workup with a lease attendant. She will not need another colonoscopy for 5 years. NELSON ALEJANDRA /[id number]
== END 2017-07-20 09:16 | disposition home or self-care (01) ==
LOC: MW.SDS 06:32
PROVIDERS: ATTEND Surgery
DX: K29.50 Unspecified chronic gastritis without bleeding (principal); I25.10 Atherosclerotic heart disease of native coronary artery without angina pectoris; I10 Essential (primary) hypertension; E78.00 Pure hypercholesterolemia, unspecified; G89.29 Other chronic pain; M54.9 Dorsalgia, unspecified; M79.7 Fibromyalgia; M19.90 Unspecified osteoarthritis, unspecified site; D50.9 Iron deficiency anemia, unspecified; F41.8 Other specified anxiety disorders; E11.9 Type 2 diabetes mellitus without complications; E66.9 Obesity, unspecified; Z68.38 Body mass index [BMI] 38.0-38.9, adult; Z79.01 Long term (current) use of anticoagulants; Z79.82 Long term (current) use of aspirin; Z79.84 Long term (current) use of oral hypoglycemic drugs; Z79.899 Other long term (current) drug therapy; Z88.5 Allergy status to narcotic agent; Z88.6 Allergy status to analgesic agent; Z91.018 Allergy to other foods; Z91.041 Radiographic dye allergy status; Z90.49 Acquired absence of other specified parts of digestive tract; Z90.710 Acquired absence of both cervix and uterus; Z95.5 Presence of coronary angioplasty implant and graft; Z96.641 Presence of right artificial hip joint; Z96.652 Presence of left artificial knee joint; Z98.890 Other specified postprocedural states; Z86.010 Personal history of colon polyps; Z80.0 Family history of malignant neoplasm of digestive organs
CPT/HCPCS: 43239; 45378; J2250; J3010; J7120; 00813; 88305; 88312; J2704

== ENCOUNTER 2018-10-13 11:46 | Emergency (ER) | payer MEDICARE, OTHER ==
--- NOTE | 2018-10-13 12:51 | EDM.PDOC ---
ED HPI GENERAL MEDICAL PROBLEM - General Chief Complaint: Upper Extremity Injury/Pain Stated Complaint: RASH ON RIGHT ARM Time Seen by Provider: 10/13/18 11:47 Source of Information: Reports: Patient History Limitations: Reports: No Limitations - History of Present Illness INITIAL COMMENTS - FREE TEXT/NARRATIVE: History of present illness: [] Review of systems: As per history of present illness and below otherwise all systems reviewed and negative. Past medical history: As per history of present illness and as reviewed below otherwise noncontributory. Surgical history: As per history of present illness and as reviewed below otherwise noncontributory. Social history: No reported history of drug or alcohol abuse. Family history: As per history of present illness and as reviewed below otherwise noncontributory. Physical exam: General: Well developed, well nourished in NAD HEENT: Atraumatic, normocephalic, pupils reactive, negative for conjunctival pallor or scleral icterus, mucous membranes moist, throat clear, neck supple, nontender, trachea midline. Lungs: Clear to auscultation, breath sounds equal bilaterally, chest nontender. Heart: S1S2, regular, negative for clicks, rubs, or JVD. Abdomen: NABS, Soft, nondistended, nontender. Negative for masses or hepatosplenomegaly. Negative for costovertebral tenderness. Pelvis: Stable nontender. Genitourinary: Deferred. Rectal: Deferred. Extremities: Large ecchymotic area of the right upper arm there is no gross deformities distal pulses are palpable sensation is intact and there is no limitation of movement at the elbow wrist or fingers., negative for cords or calf pain. Neurovascular unremarkable. Neuro: Awake, alert, oriented. Cranial nerves II through XII unremarkable. Cerebellum unremarkable. Motor and sensory unremarkable throughout. Exam nonfocal. Skin:warm and dry Diagnostics: CBC, x-ray of humerus, PT PTT Therapeutics: Declined pain meds, arm sling ED Course: Stable Impression: Right arm contusion Prescriptions: None Plan: Take meds as directed, follow up with your primary care physician, return to ER if symptoms worsen or change. Definitive disposition and diagnosis as appropriate pending reevaluation and review of above. right arm Pain Score (Numeric/FACES): 3 - Related Data Allergies Allergy/AdvReac Type Severity Reaction Status Date / Time caffeine Allergy Diarrhea Verified 05/22/17 10:59 codeine Allergy Nausea Verified 05/22/17 10:59 IVP dye Allergy Anaphylactic Uncoded 05/09/17 09:01 Shock Home Meds: Home Meds Citalopram [Citalopram HBr] 20 mg PO DAILY 05/22/17 [History] Gabapentin [Neurontin] 800 mg PO TID 05/22/17 [History] Metoprolol Succinate 12.5 mg PO BID 05/22/17 [History] Ascorbic Acid [Vitamin C with Richa Hips] 600 mg PO DAILY 07/17/17 [History] Cholecalciferol (Vitamin D3) [Vitamin D3] 400 unit PO DAILY 07/17/17 [History] Magnesium 250 mg PO DAILY 07/17/17 [History] metFORMIN HCl [Metformin ER Osmotic] 500 mg PO BIDMEALS 07/17/17 [History] Pantoprazole [ProTONIX] 40 mg PO DAILY #30 tab.cr 07/20/17 [Rx] Chlorthalidone 25 mg PO DAILY 10/13/18 [History] Diclofenac Sodium [Voltaren] 75 mg PO BID 10/13/18 [History] Ranitidine [Zantac] 10/13/18 [History] atorvaSTATin [Lipitor] 40 mg PO DAILY 10/13/18 [History] Past Medical History HEENT History: Reports: Allergic Rhinitis, Hard of Hearing, Impaired Vision Other HEENT History: wears glasses Cardiovascular History: Reports: CAD, High Cholesterol, Hypertension, Stents Respiratory History: Reports: Asthma Other Respiratory History: was told she had asthma, another Doctor told her she didn't- does not use inhalers Gastrointestinal History: Reports: GERD, Hiatal Hernia Genitourinary History: Reports: None 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 OF EVENT 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: Reports: None Musculoskeletal History: Reports: Arthritis, Back Pain, Chronic, Fibromyalgia, Other (See Below) Other Musculoskeletal History: has spinal stenosis Neurological History: Reports: Other (See Below) Psychiatric History: Reports: Anxiety, Depression Endocrine/Metabolic History: Reports: Diabetes, Type II, Obesity/BMI 30+ Other Endocrine/Metabolic History: recently diagnosed diabetic, has not started on medication Hematologic History: Reports: Anemia, Anticoagulation Therapy, Blood Transfusion (s) Immunologic History: Reports: None Oncologic (Cancer) History: Reports: None Dermatologic History: Reports: Other (See Below) Other Dermatologic History: has dermatitis on face - Infectious Disease History Infectious Disease History: Reports: Chicken Pox, Measles, Mumps - Past Surgical History HEENT Surgical History: Reports: None Cardiovascular Surgical History: Reports: None, Carotid Stents Female Surgical History: Reports: Hysterectomy Endocrine Surgical History: Reports: None Neurological Surgical History: Reports: None Musculoskeletal Surgical History: Reports: Hip Replacement, Knee Replacement, Other (See Below) Other Musculoskeletal Surgeries/Procedures:: foot surgery Oncologic Surgical History: Reports: None Dermatological Surgical History: Reports: None Social & Family History - Family History Family Medical History: Noncontributory - Tobacco Use Smoking Status *Q: Never Smoker - Caffeine Use Caffeine Use: Reports: None - Recreational Drug Use Recreational Drug Use: No Review of Systems - Review of Systems Review Of Systems: See Below ED EXAM, GENERAL - Physical Exam Exam: See Below Course - Vital Signs Last Recorded V/S: Last Vital Signs Temp Pulse 61 10/13/18 11:53 Resp 16 10/13/18 11:53 BP 149/61 H 10/13/18 11:53 Pulse Ox 98 10/13/18 11:53 - Orders/Labs/Meds Orders: Active Orders 24 hr Category Date Time Status Humerus Rt [CR] Stat Exams 10/13/18 12:09 Taken Labs: Laboratory Tests 10/13/18 10/13/18 Range/Units 12:28 12:28 WBC 6.64 (4.0-11.0) K/uL RBC 4.35 (4.30-5.90) M/uL Hgb 12.2 (12.0-16.0) g/dL Hct 38.8 (36.0-46.0) % MCV 89.2 (80.0-98.0) fL MCH 28.0 (27.0-32.0) pg MCHC 31.4 (31.0-37.0) g/dL RDW Std Deviation 47.0 (28.0-62.0) fl RDW Coeff of Chavez 14 (11.0-15.0) % Plt Count 234 (150-400) K/uL MPV 9.60 (7.40-12.00) fL Neut % (Auto) 73.0 (48.0-80.0) % Lymph % (Auto) 16.6 (16.0-40.0) % Riley % (Auto) 6.6 (0.0-15.0) % Eos % (Auto) 3.5 (0.0-7.0) % Baso % (Auto) 0.3 (0.0-1.5) % Neut # (Auto) 4.9 (1.4-5.7) K/uL Lymph # (Auto) 1.1 (0.6-2.4) K/uL Riley # (Auto) 0.4 (0.0-0.8) K/uL Eos # (Auto) 0.2 (0.0-0.7) K/uL Baso # (Auto) 0.0 (0.0-0.1) K/uL Nucleated RBC % 0.0 /100WBC Nucleated RBCs # 0 K/uL INR 1.02 APTT 27.4 (18.6-31.3) SEC Departure - Departure Time of Disposition: 12:51 Disposition: Home, Self-Care 01 Condition: Good Clinical Impression: Contusion of right arm Qualifiers: Encounter type: initial encounter Qualified Code(s): S40.021A - Contusion of right upper arm, initial encounter - Discharge Information *PRESCRIPTION DRUG MONITORING PROGRAM REVIEWED*: No *COPY OF PRESCRIPTION DRUG MONITORING REPORT IN PATIENT LAYLA: No Referrals: PCP,None [Primary Care Provider] - Additional Instructions: The following information is given to patients seen in the emergency department who are being discharged to home. This information is to outline your options for follow-up care. We provide all patients seen in our emergency department with a follow-up referral. The need for follow-up, as well as the timing and circumstances, are variable depending upon the specifics of your emergency department visit. If you don't have a primary care physician on staff, we will provide you with a referral. We always advise you to contact your personal physician following an emergency department visit to inform them of the circumstance of the visit and for follow-up with them and/or the need for any referrals to a consulting specialist. The emergency department will also refer you to a specialist when appropriate. This referral assures that you have the opportunity for follow-up care with a specialist. All of these measure are taken in an effort to provide you with optimal care, which includes your follow-up. Under all circumstances we always encourage you to contact your private physician who remains a resource for coordinating your care. When calling for follow-up care, please make the office aware that this follow-up is from your recent emergency room visit. If for any reason you are refused follow-up, please contact the [facility] Emergency Department at and asked to speak to the emergency department charge nurse. [facility] [address] [place] [id number] - My Orders Last 24 Hours: My Active Orders 10/13/18 12:09 Humerus Rt [CR] Stat - Assessment/Plan Last 24 Hours: My Active Orders 10/13/18 12:09 Humerus Rt [CR] Stat
[2018-10-13 13:01] VITALS: BP 129/69
--- NOTE | 2018-10-13 13:03 | CR ---
INDICATION: Pain after a fall. TECHNIQUE: Two views right humerus. FINDINGS: No acute fracture. No dislocation at the shoulder or elbow. Arthritic change in the acromioclavicular joint. IMPRESSION: No acute abnormality of the right humerus. Dictated by Urszula Najera MD @ Oct 13 2018 1:00PM Signed by Dr. Urszula Najera @ Oct 13 2018 1:01PM
== END 2018-10-13 13:02 | disposition home or self-care (01) ==
LOC: MW.ED 11:46
DX: S40.021A Contusion of right upper arm, initial encounter (principal); I25.10 Atherosclerotic heart disease of native coronary artery without angina pectoris; E78.00 Pure hypercholesterolemia, unspecified; I10 Essential (primary) hypertension; Z95.5 Presence of coronary angioplasty implant and graft; J45.909 Unspecified asthma, uncomplicated; K21.9 Gastro-esophageal reflux disease without esophagitis; F41.9 Anxiety disorder, unspecified; F32.9 Major depressive disorder, single episode, unspecified; E11.9 Type 2 diabetes mellitus without complications; E66.9 Obesity, unspecified; W18.39XA Other fall on same level, initial encounter; Z88.5 Allergy status to narcotic agent; Z88.8 Allergy status to other drugs, medicaments and biological substances; Z79.899 Other long term (current) drug therapy; Z79.84 Long term (current) use of oral hypoglycemic drugs; Z68.39 Body mass index [BMI] 39.0-39.9, adult
CPT/HCPCS: 36415; 73060-26-RT; 73060-RT; 85025; 85610; 85730; 99283; 99283-25

== ENCOUNTER 2019-03-03 13:20 | Emergency (ER) | payer MEDICARE, OTHER ==
[2019-03-03 13:36] VITALS: BP 131/76; PULSE 86
[2019-03-03] MEDS ORDERED: Ketorolac 60 MG/2 ML SDV IM ONE (14:02)
--- NOTE | 2019-03-03 14:09 | EDM.PDOC ---
ED HPI GENERAL MEDICAL PROBLEM - General Chief Complaint: Neck Problem Stated Complaint: SORE NECK AND HEADACHE Time Seen by Provider: 03/03/19 13:37 Source of Information: Reports: Patient History Limitations: Reports: No Limitations - History of Present Illness INITIAL COMMENTS - FREE TEXT/NARRATIVE: Presents reporting left neck pain the patient states that about 4 days ago she had some right occipital neck pain that radiated to the upper shoulder blade and roman catholic. That resolved but the pain then moved over to the left occipital area and radiates to the upper shoulder blade and roman catholic. The patient states that she has been off her arthritis meds for a week so she could do a screening fecal called blood test. She has a history of arthritis and fibromyalgia and usually takes diclofenac twice daily. She also has a history of degenerative disc disease of the cervical and lumbar spine. She denies fever, injury, visual symptoms. She did have a chiropractic treatment as well as massage without palliation. She is using a cool pack right now. Neck Pain Score (Numeric/FACES): 8 - Related Data Allergies Allergy/AdvReac Type Severity Reaction Status Date / Time caffeine Allergy Diarrhea Verified 03/03/19 13:36 codeine Allergy Nausea Verified 03/03/19 13:36 IVP dye Allergy Anaphylactic Uncoded 05/09/17 09:01 Shock Home Meds: Home Meds Citalopram [Citalopram HBr] 20 mg PO DAILY 05/22/17 [History] Gabapentin [Neurontin] 800 mg PO TID 05/22/17 [History] Metoprolol Succinate 12.5 mg PO BID 05/22/17 [History] Ascorbic Acid [Vitamin C with Richa Hips] 600 mg PO DAILY 07/17/17 [History] Cholecalciferol (Vitamin D3) [Vitamin D3] 400 unit PO DAILY 07/17/17 [History] Magnesium 250 mg PO DAILY 07/17/17 [History] metFORMIN HCl [Metformin ER Osmotic] 500 mg PO BIDMEALS 07/17/17 [History] Pantoprazole [ProTONIX] 40 mg PO DAILY #30 tab.cr 07/20/17 [Rx] Chlorthalidone 12.5 mg PO DAILY 10/13/18 [History] atorvaSTATin [Lipitor] 40 mg PO DAILY 10/13/18 [History] Cyanocobalamin (Vitamin B-12) [Vitamin B-12] 5,000 mcg PO DAILY 03/03/19 [ History] Diclofenac Sodium [Voltaren] 75 mg PO BID 03/03/19 [History] Lactobacillus Acidophilus [Probiotic] 1 cap PO DAILY 03/03/19 [History] Multivit-Min/Iron/Folic/Lutein [Multivitamin Women 50 Plus Tab] 1 tab PO DAILY 03/03/19 [History] Pyridoxine HCl (Vitamin B6) [Vitamin B-6] 100 mg PO DAILY 03/03/19 [History] Past Medical History HEENT History: Reports: Allergic Rhinitis, Hard of Hearing, Impaired Vision Other HEENT History: wears glasses Cardiovascular History: Reports: CAD, High Cholesterol, Hypertension, Stents Respiratory History: Reports: Asthma Other Respiratory History: was told she had asthma, another Doctor told her she didn't- does not use inhalers Gastrointestinal History: Reports: GERD, Hiatal Hernia Genitourinary History: Reports: None PATCHER HELPER History: Reports: None Musculoskeletal History: Reports: Arthritis, Back Pain, Chronic, Fibromyalgia, Other (See Below) Other Musculoskeletal History: has spinal stenosis Neurological History: Reports: Other (See Below) Psychiatric History: Reports: Anxiety, Depression Endocrine/Metabolic History: Reports: Diabetes, Type II, Obesity/BMI 30+ Other Endocrine/Metabolic History: recently diagnosed diabetic, has not started on medication Hematologic History: Reports: Anemia, Anticoagulation Therapy, Blood Transfusion (s) Immunologic History: Reports: None Oncologic (Cancer) History: Reports: None Dermatologic History: Reports: Other (See Below) Other Dermatologic History: has dermatitis on face - Infectious Disease History Infectious Disease History: Reports: Chicken Pox, Measles, Mumps - Past Surgical History HEENT Surgical History: Reports: None Cardiovascular Surgical History: Reports: None, Carotid Stents Female Surgical History: Reports: Hysterectomy Endocrine Surgical History: Reports: None Neurological Surgical History: Reports: None Musculoskeletal Surgical History: Reports: Hip Replacement, Knee Replacement, Other (See Below) Other Musculoskeletal Surgeries/Procedures:: foot surgery Oncologic Surgical History: Reports: None Dermatological Surgical History: Reports: None Social & Family History - Family History Family Medical History: Noncontributory - Tobacco Use Smoking Status *Q: Never Smoker - Caffeine Use Caffeine Use: Reports: None - Recreational Drug Use Recreational Drug Use: No ED ROS GENERAL - Review of Systems Review Of Systems: Comprehensive ROS is negative, except as noted in HPI. ED EXAM, UPPER BACK/NECK PAIN - Physical Exam Exam: See Below Exam Limited By: No Limitations General Appearance: Alert, Mild Distress (Due to neck pain) Ears Exam: Normal External Exam, Normal Canal, Normal TMs Nose Exam: Normal Inspection Throat/Mouth Exam: Normal Inspection, Normal Oropharynx Head Exam: Atraumatic, Normocephalic Neck Exam: Full Range of Motion, Normal Inspection, Other (Mild tenderness over the trapezius insertion and along the upper left shoulder blade. No rash, swelling, lesion, erythema). No: Paraspinous Muscle Tender, Spinous Processes Tender, Tender Midline Back Exam: Normal Inspection, Full Range of Motion Extremities: Normal Inspection, Normal Range of Motion Psychiatric: Normal Affect, Normal Mood Skin Exam: Normal Color, Warm/Dry Lymphatic: No Adenopathy Course - Vital Signs Last Recorded V/S: Last Vital Signs Temp 36.2 C 03/03/19 13:32 Pulse 86 03/03/19 13:32 Resp 18 03/03/19 13:32 BP 131/76 03/03/19 13:32 Pulse Ox 95 03/03/19 13:32 - Orders/Labs/Meds Orders: Active Orders 24 hr Category Date Time Status Ketorolac [Toradol] Med 03/03/19 14:02 Once 60 mg IM ONETIME ONE Departure - Departure Time of Disposition: 14:28 Disposition: Home, Self-Care 01 Condition: Good Clinical Impression: Myalgia - Discharge Information Referrals: Geri Olivares MD [Primary Care Provider] - Additional Instructions: The following information is given to patients seen in the emergency department who are being discharged to home. This information is to outline your options for follow-up care. We provide all patients seen in our emergency department with a follow-up referral. The need for follow-up, as well as the timing and circumstances, are variable depending upon the specifics of your emergency department visit. If you don't have a primary care physician on staff, we will provide you with a referral. We always advise you to contact your personal physician following an emergency department visit to inform them of the circumstance of the visit and for follow-up with them and/or the need for any referrals to a consulting specialist. The emergency department will also refer you to a specialist when appropriate. This referral assures that you have the opportunity for follow-up care with a specialist. All of these measure are taken in an effort to provide you with optimal care, which includes your follow-up. Under all circumstances we always encourage you to contact your private physician who remains a resource for coordinating your care. When calling for follow-up care, please make the office aware that this follow-up is from your recent emergency room visit. If for any reason you are refused follow-up, please contact the [facility] Emergency Department at and asked to speak to the emergency department charge nurse. 1. Abort your screening fecal occult blood test for now. 2. You have been given as a anti-inflammatory in the emergency room. Please restart your diclofenac in the morning. 3. Warm or cold packs whichever feels best 20 minutes every 3-4 hours. 4. Follow-up in primary care. - My Orders Last 24 Hours: My Active Orders 03/03/19 14:02 Ketorolac [Toradol] 60 mg IM ONETIME ONE - Assessment/Plan Last 24 Hours: My Active Orders 03/03/19 14:02 Ketorolac [Toradol] 60 mg IM ONETIME ONE
== END 2019-03-03 14:41 | disposition home or self-care (01) ==
LOC: MW.ED 13:20
DX: M79.10 Myalgia, unspecified site (principal); I10 Essential (primary) hypertension; E78.00 Pure hypercholesterolemia, unspecified; I25.10 Atherosclerotic heart disease of native coronary artery without angina pectoris; K21.9 Gastro-esophageal reflux disease without esophagitis; E11.9 Type 2 diabetes mellitus without complications; F41.9 Anxiety disorder, unspecified; J45.909 Unspecified asthma, uncomplicated; E66.9 Obesity, unspecified; F32.9 Major depressive disorder, single episode, unspecified; Z68.38 Body mass index [BMI] 38.0-38.9, adult; Z79.01 Long term (current) use of anticoagulants; Z79.899 Other long term (current) drug therapy; Z79.84 Long term (current) use of oral hypoglycemic drugs; Z91.018 Allergy to other foods; Z88.5 Allergy status to narcotic agent; Z91.041 Radiographic dye allergy status
CPT/HCPCS: 96372; 99283; J1885

== ENCOUNTER 2022-09-22 09:05 | Day surgery (SDC) | payer MEDICARE, OTHER ==
[~2022-09-22 09:05] MED LIST changes: +Sodium Chloride 0.9% 20 ML SDV IV PRN
[2022-09-22] MEDS ORDERED: Lidocaine 2% 5 ML SDV ONE (09:57)
[2022-09-22] MEDS ORDERED: Propofol 200 MG/20 ML SDV ONE (09:57)
[2022-09-22 10:42] VITALS: PULSE 62
[2022-09-22 10:56] VITALS: BP 106/55
== END 2022-09-22 11:12 | disposition home or self-care (01) ==
LOC: MW.SDS 09:05
PROVIDERS: ATTEND Surgery
DX: Z12.11 Encounter for screening for malignant neoplasm of colon (principal); K57.30 Diverticulosis of large intestine without perforation or abscess without bleeding; L98.8 Other specified disorders of the skin and subcutaneous tissue; I10 Essential (primary) hypertension; E11.9 Type 2 diabetes mellitus without complications; I25.10 Atherosclerotic heart disease of native coronary artery without angina pectoris; K21.9 Gastro-esophageal reflux disease without esophagitis; J45.909 Unspecified asthma, uncomplicated; F41.8 Other specified anxiety disorders; E78.5 Hyperlipidemia, unspecified; M54.9 Dorsalgia, unspecified; G89.29 Other chronic pain; M79.7 Fibromyalgia; M19.90 Unspecified osteoarthritis, unspecified site; E66.9 Obesity, unspecified; Z86.010 Personal history of colon polyps; Z91.041 Radiographic dye allergy status; Z88.5 Allergy status to narcotic agent; Z88.6 Allergy status to analgesic agent; Z91.048 Other nonmedicinal substance allergy status; Z79.82 Long term (current) use of aspirin; Z79.84 Long term (current) use of oral hypoglycemic drugs; Z79.899 Other long term (current) drug therapy; Z79.891 Long term (current) use of opiate analgesic; Z90.710 Acquired absence of both cervix and uterus; Z95.5 Presence of coronary angioplasty implant and graft; Z96.641 Presence of right artificial hip joint; Z80.0 Family history of malignant neoplasm of digestive organs; Z68.36 Body mass index [BMI] 36.0-36.9, adult
CPT/HCPCS: 00812; 82947; 99100; G0105; J2704; J3490; J7120